=== PATIENT | female | born 2000 | race Caucasian/White ===

== ENCOUNTER 2024-04-18 06:32 | Inpatient (IN) | payer OTHER, MEDICAID ==
[2024-04-18] VITALS (65 sets, daily range): BP systolic 100–158; BP diastolic 55–93; PULSE 74–123; TEMP 98–98.7
[~2024-04-18] VITALS: Ht 167.6 cm; Wt 105.5 kg
--- NOTE | 2024-04-18 06:45 | NUR ---
AT 0647, PT HERE WITH SIGNIFICANT OTHER FOR INDUCTION, ORIENTED TO RM, CALL LIGHT PLAN OF CARE, EFM ON AT 0653, FHR 120'S WITH GOOD ACCELS, REACTIVE STRIP. +FM HEARD AND PT REPORTS, NO BLEEDING, LEAKING OF FLUID, ASSESSMENT COMPLETED AND CONSENTS SIGNED. IV START IN LEFT HAND, LR BAG 1 INITIATED PER ORDER, PT TOLERATED WELL. CBC AND TYPE AND SCREEN TO LAB PER ORDER, UDS ALSO TO LAB FOR HX OF DRUG USE IN 2021. QUESTIONS ADDRESSED. SVE DONE PT 1CM/70%, -2 STATION.
--- NOTE | 2024-04-18 07:15 | NUR ---
AT 0725, PITOCIN STARTED AT 2MU/MIN PER PUMP PER ORDER.
--- NOTE | 2024-04-18 07:52 | NUR ---
IN ROOM AT 0750, VIEWS STRIP, DISCUSSES PLAN OF CARE WITH PT, SVE AND AROM AT 0752 WITH IMMEDIATE CLEAR FLUID RET, PT TOLERATES FAIR, REPOSITIONED UP ON RIGHT SIDE WITH TOWEL AND PEANUT BALL FOR COMFORT.
[2024-04-18] MEDS ORDERED: LR & Oxytocin 500 ML IV SCH (08:15)
[2024-04-18] MEDS ORDERED: LR 1,000 ML IV SCH (08:15)
[2024-04-18 08:25] LABS: BASO % 0.3 % (0.0-2.0); EOS # 0.3 K/mm3 (0.0-0.7); EOS % 3.1 % (0.0-4.0); GRAN # 6.5 K/mm3 (1.4-6.5); GRAN % 74.9 % (42.2-75.2); HEMOGLOBIN 11.2 g/dl (12.5-16.0); LYMPH # 1.1 K/mm3 (1.2-3.4); LYMPH % 12.1 % (20.0-51.0); MEAN CELL VOLUME 86 fl (80.0-100.0); MEAN CORPUSCULAR HEMOGLOBIN 29 pg (27-31); MEAN CORPUSCULAR HGB CONC 33 g/dl (33.0-37.0); MEAN PLATELET VOLUME 12.5 fl (7.4-10.4); MONO # 0.7 K/mm3 (0.1-0.6); MONO % 8.4 % (1.7-9.3); PLATELET COUNT 286 K/mm3 (130-400); RED BLOOD COUNT 3.92 M/mm3 (4.10-5.30); REDCELL DISTRIBUTION WIDTH-CV 13.3 % (11.5-14.5)
[2024-04-18 08:27] LABS: HEMATOCRIT 33.7 % (37.0-47.0)
--- NOTE | 2024-04-18 08:45 | NUR ---
EFM OFF AT 0838, VOIDS 250CC OF CLEAR YELLOW URINE, RET TO BED, EFMO N AT 0850, PT FEELING MILD CRAMPING WITH CTX.
[2024-04-18 09:05] LABS: ALBUMIN 2.6 g/dL (3.5-5.0); BILIRUBIN,TOTAL 0.2 mg/dL (0.2-1.2); CREATININE, serum 0.62 mg/dL (0.57-1.11); POTASSIUM 4.5 mEq/L (3.5-4.5); TOTAL PROTEIN 6.6 g/dl (6.2-8.1)
--- NOTE | 2024-04-18 09:52 | NUR ---
EFM OFF AT 0952, AMBULATES TO BATHROOM, VOIDS 300CC OF CLEAR YELLOW URINE, RET TO BED, REPOSTIIONED SITTING UP, RATES CTX PAIN A 2-3, PARENTS IN VISITING WITH PT.
--- NOTE | 2024-04-18 10:45 | NUR ---
AT 1045, RATES CTX PAIN ABOUT A 3-4, FEELING LOW IN FRONT, VISITING WITH FAMILY, SITTING UP IN BED, BAG 2 LR HUNG.
--- NOTE | 2024-04-18 11:00 | NUR ---
EFM OFF AT 1110, VOIDS 50CC OF CLEAR YELLOW URINE, RET TO BED, SITTING UP AT 1117.
[2024-04-18 11:06] LABS: TRICYCLIC ANTIDEPRESS URINE NEGATIVE (NEGATIVE)
--- NOTE | 2024-04-18 12:15 | NUR ---
HAVING TO BREATH THROUGH CTX AT THIS TIME, POSITION CHANGE WEDGED LEFT, S/O AT SIDE, RATES CTX PAIN A 5 ON 1-10 SCALE.
--- NOTE | 2024-04-18 13:00 | NUR ---
EFM OFF AT 1258, PT UP TO BATHROOM, VOIDS 200CC OF CLEAR YELLOW URINE, RET TO BED, SITTING UP, EFM ON AT 1308
--- NOTE | 2024-04-18 13:30 | NUR ---
IN ROOM AT 1330, SVE DONE, NOT MUCH CERVICAL CHANGE FROM EXAM AT [facility], DISCUSSED PAIN CONTROL OPTIONS, EPIDURAL, PT WOULD LIKE TO WAIT AT THIS TIME, PITOCIN INCREASED TO 22MU/MIN PER PUMP, S/O AT SIDE.
--- NOTE | 2024-04-18 15:16 | NUR ---
EFM OFF AT 1500, PT UP TO BATHROOM, VOIDS 150CC OF CLEAR YELLOW URINE, RET TO BED, SITTING UP, EFM ON AT 1510.
--- NOTE | 2024-04-18 16:15 | NUR ---
POSITION CHANGE STANDING UP, SWAYING SIDE TO SIDE WITH SUPPORT PERSON, BREATHING WELL THROUGH CTX.
--- NOTE | 2024-04-18 16:45 | NUR ---
POSITION CHANGE UP TO RIGHT SIDE, BP 158/93 DURING CTX PEAK, BREATHING WELL THROUGH CTX.
--- NOTE | 2024-04-18 17:15 | NUR ---
AT 1704, EFM OFF, PT UP TO BATRHOOM, VOIDS 200CC OF CLEAR YELLOW URINE, RET TO BED AT 1715, EFM ON, BREATHING THROUGH CTX, RATES CTX PAIN A 7-8.
--- NOTE | 2024-04-18 17:31 | NUR ---
SVE BY AT 1730, SOME CERVICAL CHANGE 2-3CM, PT WOULD LIKE EPIDURAL, WILL START IVF BOLUS AND CALL EVONNE RODRIGUEZ FOR EPIDURAL PLACEMENT.
--- NOTE | 2024-04-18 17:48 | NUR ---
IVF BOLUS INFUSING FOR EPIDURAL.
[2024-04-18] MEDS ORDERED: ROPivacaine PF 0.2% 200 ML IV ONE (18:08)
--- NOTE | 2024-04-18 18:15 | NUR ---
PT SITTING UP ON SIDE OF BED AT 181, EVONNE RODRIGUEZ IN ROOM TO PLACE EPIDURAL, PREP AT 181, LIDOCAINE 182, EPIDURAL PLACED AT 182, TEST DOSE AT 183, SEE ANESTHESIA RECORD, PT TOLERATED PROCEDURE WELL, DIFFICULT TO TRACE FHR DUE TO PT SITTING UP ON SIDE OF BED, FHR RET AT 183, FHR 130'S WITH ACCELS TO 150'S, ORTHODOX/SUPPORT PERSON AT SIDE, REPOSITIONED FOLLOWING EPIDURAL AT 184, VSS.
--- NOTE | 2024-04-18 18:30 | NUR ---
PT VERBALIZING COMFORT WITH EPIDURAL AT 1835, BEDSIDE REPORT TO ELDA-MICHELLE.
[2024-04-18] MEDS ORDERED: diphenhydrAMINE 50 MG/ML 1 ML VIAL IV PRN (19:00)
[2024-04-18] MEDS ORDERED: diphenhydrAMINE 25 MG CAP PO PRN (19:00)
[2024-04-18] MEDS ORDERED: Naloxone 0.4 MG/ML VIAL IV PRN (19:00)
[2024-04-18] MEDS ORDERED: Ondansetron 4 MG/2 ML VIAL IV PRN (19:00)
[2024-04-18] MEDS ORDERED: ePHEDrine 50 MG/10 ML VIAL IV PRN (19:00)
--- NOTE | 2024-04-18 19:17 | NUR ---
AT BEDSIDE. FHR TRACING REVIEWED. PLAN OF CARE UPDATED. SVE /-2 @ 383.
--- NOTE | 2024-04-18 20:09 | NUR ---
ON UNIT. NEW ORDERS AT THIS TIME TO DECREASE PITOCIN TO 2ML/HR AND BEGIN TITRATING EVERY 15 MINS AGIAN. IT WAS CLAIRFIED BY THIS RN THAT PROVIDER DID NOT WANT TO TAKE A PITOCIN BREAK BUT TO JUST DECREASE THE PITOCIN AT THIS TIME.
[2024-04-19] VITALS (48 sets, daily range): BP systolic 97–150; BP diastolic 53–92; PULSE 94–198; TEMP 98–99
[2024-04-19] MEDS ORDERED: Acetaminophen 500 MG TAB PO ONE (04:45)
--- NOTE | 2024-04-19 05:33 | NUR ---
0522- THIS NURSE IN ROOM TO ADJUST US. FHTs FOUND IN THE 90s, PREVIOUS BASELINE IN THE 140s. 0524- PULSE OXIMETRY PLACED ON PT, MATERNAL HR TRACING APPROXIMATELY 5-10 BEATS LOWER THAN FHTs TRACING. PT REPOSITIONED TO [facility] FOR SVE. 0528- SVE OF 4-5/90/-2, FHTs IMPROVED TO BASELINE OF 140. 0533- PT REPOSITIONED TO [facility].
[2024-04-19] MEDS ORDERED: Tranexamic Acid 1,000 MG in NS 100 ML IV ONE (08:15)
[2024-04-19] MEDS ORDERED: Azithromycin 500 MG in NS 250 ML IV ONE (08:15)
[2024-04-19] MEDS ORDERED: Magnes Hydrox (MOM) 80 MG/ML 30 ML CUP PO PRN (08:30)
[2024-04-19] MEDS ORDERED: LR 1,000 ML IV PRN (08:30)
[2024-04-19] MEDS ORDERED: Naloxone 0.4 MG/ML VIAL IV PRN (08:30)
[2024-04-19] MEDS ORDERED: Measles/Mumps/Rubella Virus Vaccine Live w Diluent 0.5 ML VIAL SQ SCH (08:30)
[2024-04-19] MEDS ORDERED: Ondansetron 4 MG/2 ML VIAL IV PRN (08:30)
[2024-04-19] MEDS ORDERED: Tdap Vaccine 0.5 ML SYRINGE IM SCH (08:30)
[2024-04-19] MEDS ORDERED: Loratadine 10 MG TAB PO PRN (08:30)
[2024-04-19] MEDS ORDERED: oxyCODONE 5 MG TAB PO PRN (08:30)
[2024-04-19] MEDS ORDERED: Acetaminophen 500 MG TAB PO PRN (08:30)
[2024-04-19] MEDS ORDERED: Phenylephrine 10 MG/ML VIAL ONE (08:37)
[2024-04-19] MEDS ORDERED: Ketorolac 60 MG/2 ML VIAL IM ONE (08:37)
[2024-04-19] MEDS ORDERED: Ondansetron 4 MG/2 ML VIAL ONE (08:39)
[2024-04-19] MEDS ORDERED: dexAMETHasone 10 MG/ML VIAL ONE (08:39)
[2024-04-19] MEDS ORDERED: NS 20 ML IV ONE (08:39)
[2024-04-19] MEDS ORDERED: Oxytocin 10 UNITS/ML VIAL ONE (08:39)
[2024-04-19] MEDS ORDERED: Tranexamic Acid 1,000 MG/10 ML VIAL ONE (08:43)
[2024-04-19] MEDS ORDERED: fentaNYL 50 MCG/ML 2 ML VIAL ONE ×2 (09:03→09:09)
[2024-04-19] MEDS ORDERED: Meperidine 50 MG/ML 1 ML VIAL ONE (09:05)
[2024-04-19] MEDS ORDERED: LR 1,000 ML IV ONE (09:07)
--- NOTE | 2024-04-19 11:24 | NUR ---
1049- CALLED DR JADE TO REPORT PT QBL FROM PACU OF 341. UNKNOWN PERSON ANSWERED THE PHONE AND STATED THEY WOULD GIVE DR JADE THE MESSAGE, AND TOOK MY CALL BACK NUMBER. OR QBL WAS 670. 1110- PT HAD ANOTHER [address] CHAVEZ WHO WAS ON THE UNIT AND ON-CALL ABOUT STARTING A SECOND BAG OF PITOCIN. DR CHAVEZ SAID TO GO AHEAD AND START A SECOND BAG OF PITOCIN. 1115- SECOND BAG OF PITOCIN HUNG.
--- NOTE | 2024-04-19 11:36 | NUR ---
beef cattle farm worker went to meet with patient but was notified she was taken to her . SW asked nurses at the nurses station to have patient's nurse notify her when patient would be ready for her to visit with her.
--- NOTE | 2024-04-19 13:33 | NUR ---
foster care worker was consulted for patient's previous drug usage i.e. marijuana ages [age] then "dabbled" in oxy, percocet, adderall and mollie but reports only to vape now. SW verified with patient's nurse, Alana, that patient was negative upon admit and did not have a positive test during according to the records they received. SW contacted Maternal and Child Health at the [facility] whom expressed they would be able to assist patient if she were to want their services but she would need to come to the health department for each visit, they would be unable to do home visits in [place]. SW reviewed the records for patient and noticed a negative drug screen on 09/18/23. SW met with patient's nurse, Alana, whom reports patient and father of baby have been appropriate with baby, no concerns at this time. SW met with patient, father of the baby (Caodaism), patient's mother and patient's father to complete assessement. Patient lives in [place]. PCP is at [facility], Pharmacy is [facility] in [place]. Insurance is Medicaid [facility]. SW explained how to add their baby to her insurance. Patient understood. Improvement Manager has been [facility] with [facility]. Patient and father of the baby's family is very supportive. Patient is not currently employed but may look at a job at some point. SW discussed children's tutor nursery support through [employer]. Patient understood but has family members for this support as well if she were to return to work. Patient reports she has all supplies for baby at home including but not limited to, clothes, diapers, swaddles, crib, bassinet, bottles, burb cloths and car seat. SW asked if there were any supplies they felt they needed help with obtaining. Patient and family could not think of any supplies at this time. SW provided Maternal and Child Health brochure, mental health resources list, mental health and substance resources, [employer], [employer] assistance info, [facility] resources for diapers, clothing and supplies, [facility] resource guide and community food support. SW reviewed all of this information with patient and family. SW asked about any current or previous substance use. Patient stated she does not have any current usage and reported to have only drank alcohol maybe 1-2 drinks a week prior to finding out she was . Patient and family have no concerns about taking baby home. SW notes during the conversation, father of the baby, was holding baby and being very attentive to her. CPS Intake ID: [id number]
[2024-04-19] MEDS ORDERED: Ibuprofen 800 MG TAB PO SCH (14:25)
[2024-04-19] MEDS ORDERED: Sennosides/Docusate 8.6-50 MG TAB PO SCH (17:00)
[2024-04-19] MEDS ORDERED: traZODone 50 MG TAB PO PRN (21:00)
[2024-04-20 05:00] VITALS: BP 130/79; PULSE 83; TEMP 97.9
[2024-04-20 07:22] VITALS: BP 117/75; BP 118/79; PULSE 87; PULSE 99; TEMP 97.9; TEMP 98.2
[2024-04-20 07:42] VITALS: BP 118/79; PULSE 99; TEMP 97.9
--- NOTE | 2024-04-20 09:28 | NUR ---
Initial visit; Parents thanked Freight Flow Sales Leader for offering congatulations and God's blessings for the of their daughter. Freight Flow Sales Leader thanked family for choosing [facility].
[2024-04-20 15:40] VITALS: BP 129/69; PULSE 99; TEMP 98
[2024-04-20 19:30] VITALS: BP 129/86; PULSE 98; TEMP 97.8
[2024-04-21 07:25] VITALS: BP 128/101; PULSE 86; TEMP 97.9
[2024-04-21 08:34] VITALS: BP 131/84
--- NOTE | 2024-04-21 11:27 | NUR ---
PT AMBULATORY AT DISCHARGE IN STABLE CONDITION WITH ACCOMPANIED BY SIGNIFICANT OTHER
--- NOTE | 2024-04-23 13:41 | NUR ---
Cord blood results came back negative.
== END 2024-04-21 11:27 | disposition home or self-care (01) | DRG 788 ==
LOC: LDR 06:32 → OB 06:32 → LDR 06:32 → OB 04-19 10:30
PROVIDERS: ADMIT Obstetrics & Gynecology
PROC: 10D00Z1 Extraction of Products of Conception, Low, Open Approach (ICD-10-PCS; principal; 2024-04-19)
DX: O48.0 Post-term pregnancy (principal); O99.214 Obesity complicating childbirth; Z3A.40 40 weeks gestation of pregnancy; O99.02 Anemia complicating childbirth; Z37.0 Single live birth; O99.814 Abnormal glucose complicating childbirth; O13.4 Gestational [pregnancy-induced] hypertension without significant proteinuria, complicating childbirth; O76 Abnormality in fetal heart rate and rhythm complicating labor and delivery; O62.1 Secondary uterine inertia; O75.89 Other specified complications of labor and delivery; Z87.891 Personal history of nicotine dependence
CPT/HCPCS: A9284; J0665; J0690; J1100; J1885; J2175; J2371; J2405; J2590; J2795; J3010; J7120